=== PATIENT | female | born 1985 ===

== ENCOUNTER 2023-07-09 17:32 | Outpatient (REF) | payer OTHER, SELFPAY ==
--- OUTSIDE RECORDS SUMMARY | 2023-07-09 17:35 | XMS_ITS | Continuity of Care Document ---
Author Name Unknown Organization [facility] Address [address] [place] [address] Care Team Providers Care Storage Management Consultant Name Role Phone Jj Green Primary Care Physician Encounter [facility] Date(s): 06/05/22 - 06/05/[address] [address] Discharge Disposition: Home or Self Care Attending Physician: Ana Parks Admitting Physician: Ana Parks Referring Physician: Ana Parks Results Laboratory List Name Date Beta hCG Quantitative 06/05/22 Most recent to oldest [Reference Range]: 1 Beta hCG Qnt [1-6 mIntlUnit/mL] 1 mIntlU nit/mL (06/05/22 10:58 AM) Social History Social History Type Response Sex Female Patient Care team information Personnel Name: Jj Green MD Address: Address: [facility] [address], [place] [address]
--- OUTSIDE RECORDS SUMMARY | 2023-07-09 17:35 | XMS_ITS | Continuity of Care Document ---
Author Name Unknown Organization [facility] Address [address] [place] [address] Care Team Providers Care Curriculum Writer Name Role Phone Zehra Bryson Primary Care Physician Encounter [facility] Date(s): 11/17/22 - 11/17/[address] [address] Discharge Disposition: Home or Self Care Attending Physician: Ana Parks MD Admitting Physician: Ana Parks MD Referring Physician: Ana Parks MD Results Laboratory List Name Date Beta hCG Quantitative 11/17/22 Most recent to oldest [Reference Range]: 1 Beta hCG Qnt [1-6 mIntlUnit/mL] <1 mIntl Unit/mL *LOW* (11/17/22 9:59 AM) Social History Social History Type Response Sex Female Patient Care team information Care Team Personnel Name: Zehra Bryson MANAGER SOLAR Position: PowerChart View Only Member Role: Primary Care Physician Address: Address: [address] [place] [id number] Care Team Related Persons Name: FRAN HADLEY Address: Home [address] [facility] [place], [place] [id number]
--- OUTSIDE RECORDS SUMMARY | 2023-07-09 17:35 | XMS_ITS | Continuity of Care Document ---
Author Name Unknown Organization [facility] Address [address] [place] [address] Care Team Providers Care Customer Service Specialist Name Role Phone Zehra Bryson Primary Care Physician Encounter [facility] Date(s): 06/28/22 - 09/05/[address] [phone] [place] Encounter Diagnosis Muscle weakness (generalized)(Final) - Dudley-Danlos syndrome, unspecified(Final) - Fibromyalgia(Final) - Pain in left hip(Final) - Discharge Disposition: Home or Self Care Attending Physician: Zehra Bryson VASCULAR MANAGER Admitting Physician: Zehra Bryson VASCULAR MANAGER Referring Physician: Zehra Bryson VASCULAR MANAGER Assessment and Plan Future Appointments Social History Social History Type Response Sex Female Physical therapy Progress note * Kelsie Monet PT: PERFORM, MODIFY Event Display: Physical Therapy Progress Note Authored Date: [id number] *Visit Type:??SEEN ONLY *Referring??Diagnosis: Muscle weakness (M62.81), L hip pain (M25.552), 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 I think that Physical Therapy is valuable as a practice, but I don't think that it is for me at this point. Maybe if I have a more specific injury in the future that I need to rehab or if I have a surgical procedure on my hip it would be beneficial. I was in more pain every time I did PT in the past. The more that I do and move, the more that I hurt. Sometimes with the exercises they feel ok in the moment but then I have more pain after and realize that it was not ok. Regarding previous documentation at initial evaluation, patient expressed concern over the following PT statement: Patient appeared to display fear avoidant behaviors and PT questioned consistency of tremor intensity at times. She had significant variations within the session for similar movements. Patient was also often not making eye contact with PT during subjective interview. PT and patient discussed the impact of her diagnosis of autism on direct eye contact and its impacton her level of comfort with direct eye contact. PT and patient discussed the impact of an intention tremor which may vary at times during differenttasks. *Current Level of Function:??Not formally assessed today Pain: Not formally assessed today *Patient Education: Discontinuation of PT services at this time. *Physical Therapy Assessment: Patient arrived at PT appointment today and lengthy discussion was held regarding patient's benefits and responses to PT services/intervention. Patient is continuing to experience pain following increases in exercise or activity, and she conveyed to PT that physical therapy may be more beneficial during times of acute orthopedic issues and/or post surgical rehabilitation. At this time, we will discontinue formal physical therapy and patient will continue with occupational evaluation to address hand weakness concerns that she presently has. *Short Term Goals: All goals remain unmet at this time and will be discontinued per patient request-09/05/2022 1. Patient to report L hip pain at worst of less than or equal to 5/10 and occurring less than or equal to 2 times per week. 2. Patient to improve LEFS score to less than or equal to 50% impairment to facilitate improvementsin ability to perform functional activities such as housework, stairs navigation, walking, squatting, etc. with less difficulty. *Vending Machine Servicer Goals: All goals remain unmet at this time and will be discontinued per patient request -09/05/2022 1. Patient to restore 4/5 or greater MMT strength for all major LE muscle groups bilaterally to facilitate improvements in ability to squat, navigate stairs and perform transfers from all surfaces without UE assistance. 2. Patient to restore ability to perform all necessary housework duties without being limited by pain or difficulty. 3. Patient to demonstrate compliance and accuracy with final HEP to continue making functional progress upon discharge from PT. *Patient Goals: Reduce pain and improve functional abilities - unmet at this time and will be discontinued per patient request -09/05/2022 *Discharge Plan:??Discharged today from skilled PT intervention per patient request. *Procedure Documentation: Seen Only: Rehab Non-billable Visit:??18??minutes Rehab patient seen only and no charge for visit. *Total Time: 18 minutes *Time In: 9:30 AM *Time Out: 9:48 AM This document was dictated utilizing voice recognition software and may contain inadvertent errors. Electronically Signed on 09/05/22 10:10 AM Kelsie Monet PT * Lexie Morel: PERFORM, MODIFY, MODIFY, MODIFY, MODIFY, MODIFY, MODIFY, MODIFY, MODIFY, MODIFY, MODIFY, MODIFY, MODIFY, MODIFY, MODIFY, MODIFY, MODIFY, MODIFY, MODIFY, MODIFY, MODIFY, MODIFY, MODIFY, MODIFY, MODIFY, MODIFY, MODIFY, MODIFY, MODIFY, MODIFY, MODIFY, MODIFY, MODIFY, MODIFY, MODIFY, MODIFY, MODIFY, MODIFY, MODIFY, MODIFY, MODIFY, MODIFY, MODIFY, MODIFY, MODIFY, MODIFY, MODIFY, MODIFY, MODIFY, MODIFY, MODIFY, MODIFY, MODIFY, MODIFY, MODIFY, MODIFY, MODIFY, MODIFY, MODIFY, MODIFY, MODIFY, MODIFY, MODIFY, MODIFY, MODIFY, MODIFY, MODIFY, MODIFY, MODIFY, MODIFY, MODIFY, MODIFY, MODIFY, MODIFY, MODIFY, MODIFY, MODIFY, MODIFY, MODIFY, MODIFY, MODIFY, MODIFY, MODIFY, MODIFY, MODIFY, MODIFY, MODIFY, MODIFY, MODIFY, MODIFY, MODIFY, MODIFY, MODIFY, MODIFY, MODIFY, MODIFY, MODIFY, MODIFY, MODIFY, MODIFY, MODIFY, MODIFY, MODIFY, MODIFY, MODIFY, MODIFY, MODIFY, MODIFY, MODIFY, MODIFY, MODIFY, MODIFY, MODIFY, MODIFY, MODIFY, MODIFY, MODIFY, MODIFY, MODIFY, MODIFY, MODIFY, MODIFY, MODIFY, MODIFY, MODIFY, MODIFY, MODIFY, MODIFY, MODIFY, MODIFY, MODIFY, MODIFY, MODIFY, MODIFY, MODIFY, MODIFY, MODIFY, MODIFY, MODIFY, MODIFY, MODIFY, MODIFY, MODIFY, MODIFY, MODIFY, MODIFY, MODIFY, MODIFY, MODIFY, MODIFY, MODIFY, MODIFY, MODIFY, MODIFY, MODIFY, MODIFY, MODIFY, MODIFY, MODIFY, MODIFY, MODIFY, MODIFY, MODIFY, MODIFY, MODIFY, MODIFY, MODIFY, MODIFY, MODIFY, MODIFY, MODIFY, MODIFY, MODIFY, MODIFY, MODIFY, MODIFY, MODIFY, MODIFY, MODIFY, MODIFY, MODIFY, MODIFY, MODIFY, MODIFY, MODIFY, MODIFY, MODIFY, MODIFY, MODIFY, MODIFY, MODIFY, MODIFY, MODIFY, MODIFY, MODIFY, MODIFY, MODIFY, MODIFY, MODIFY, MODIFY, MODIFY, MODIFY, MODIFY, MODIFY, MODIFY, MODIFY, MODIFY, MODIFY, MODIFY, MODIFY, MODIFY, MODIFY, MODIFY, MODIFY, MODIFY, MODIFY, MODIFY, MODIFY, MODIFY, MODIFY, MODIFY, MODIFY, MODIFY, MODIFY, MODIFY, MODIFY, MODIFY, MODIFY, MODIFY Event Display: Physical Therapy Progress Note Authored Date: *Visit Type:??Initial Evaluation *Referring??Diagnosis: Muscle weakness (M62.81), L hip pain (M25.552), 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 She states there was an initial injury while she was moving her leg sideways while in bed and heard a pop in herL hip. After this incident she experienced severe pain. At the time, she reports she thought she may have pulled a muscle, and decided to ignore it without seeking medical attention. She states she eventually went to see a doctor who thought she may have a tear but would need to trial PT prior to having an X-ray/MRI's. She states she began PT, but it only made pain worse. She states she did not complete all of her PT sessions and ended up moving from [facility] to [place] at that time. She states she feels symptoms may have improved slightly, but she is unsure if she may just be coping with them better at this point. Patient states she has progressing muscle weakness and tremors of unknown cause throughout her body that occur when tensioning a given muscle. She states she has had nerve conduction studies on the UE's, but there was no identified cause. She feels the weakness and tremors are slowly getting worse and she is finding more and more activities are difficult to perform.She states she also feels her tremors are worse when her anxiety is heightened. Patient reports shefeels her track repair supervisor strength in particular is getting weaker and weaker, to the point where she is now st ruggling to use zippers, to perform household tasks and with caring for her 2 year old daughter. Patient states she did not her child. Patient also complains of head and neck pain, stating thatshe has not formally addressed these concerns yet other than received trigger point injections and previous child care coordinator. She states she will be following up with her doctor regarding these concerns in about a month. Patient Case History:??Referred to PT and OT from PCP on 05/29/22 for muscle weakness and L hip pain. Pertinent Past Medical History: - Dudley Danlos Syndrome - Fibromyalgia - L Hip Pain - Depression - Muscle weakness - Vision disorder - Tremor - Psoriasis - Raynaud's disease - Migraine - Chronic fatigue syndrome - Anxiety syndrome - Autistic disorder Pertinent Past Surgical History: - Removal for uterine polyps 2020 - Breast reduction few years prior Pertinent Medications: - diclofenac sodium - ondansetron - rizatriptan - gabapentin - buspirone - bupropion - topiramate Pertinent Allergies: - Pertuss Vaccines - Sensitivity to Lidocaine Clinically Complex Situations:??None Prior Therapy:??Patient states she has had physical therapy for this problem in the past but it made things worse. She states she was living in [facility] at the time, about 2 years ago. She states that PT was very general, and the therapist emphasized not doing anything that hurts. She states she was given light resistance bands and general exercises to complete during her PT sessions as well as at home. She reports pain got worse every time and she was experiencing pain constantly between sessions, so she was unable to complete home exercises. She reports the PT attempted to back off with exercises, but no matter what things kept getting worse. She states she ended up quitting before completing all of the recommended sessions. Prior Diagnostic Results: No formal X-rays or MRI's to this date. Patient reports she had previous nerve conduction studies completed in the arms/hands. Prior Treatment:??Formal PT for hip pain as described below. Otherwise, no other treatment for thisproblem. *Barriers to Education/Special Communication Needs:??None Behavior:??Patient appeared to display fear avoidant behaviors and PT questioned consistency of tremor intensity at times. She had significant variations within the session for similar movements. Patient was also often not making eye contact with PT during subjective interview. Occupational Profile:??Patient does not work at this time secondary to pain and other health conditions. Home Environment/Set Up:??One set of stairs at home to the second floor. She is currently having togo up and down them to get to her 2 year old's bedroom. Household Members/Support Network: Lives with her and 2 year old daughter. Home Equipment:??No exercise equipment at home. *Previous Level of Function: Functional activities were somewhat difficult due to other issues, butthe hip pain and weakness has specifically exacerbated existing problems and created others. *Current Level of Function: - Stairs: managing but not comfortable - Sitting: current tolerance ~20 minutes - Standing: current tolerance ~20 minutes - Sleeping: might wake up if move the hip wrong (e.g., into abduction), wakes several times per night for various reasons - Has a lot of pets/animals to care for at home. She reports she is managing but it is a struggle - Struggles with completing housework - Stairs: she is managing to do them as they are required to get to her daughter's bedroom but withdifficulty and pain Per the LEFS: - Extreme difficulty with/inability to perform: hobbies/recreational activities, walking a mile, running, hopping - Quite a bit of difficulty with: usual work/housework, squatting, heavy activities around the home, standing or sitting for one hour and rolling over in bed - Moderate difficulty with: getting in and out of the bath, walking between rooms, putting on socksand shoes, lifting objects from the floor, light activities around the home, getting in and out of the car, walking 2 blocks and ascending and descending a flight of 10+ stairs Pain: Posterior/Lateral L hip aches and is tense at all times & Deeper sharp pain/ache into the L hipjoint with sudden hip abduction movements Current/best: 10 Worst: 03/28 when overworked, which happened twice in the past week Aggravators: walking, standing for periods of time, attempting butterfly sitting, sudden hip abduction movements Alleviators: reports using heat and medications such as Tylenol and Ibuprofen (alongside already prescribed pain medications) but these do not take the pain away Palpation: Tenderness to palpation and increased tension noted along L gluteals/piriformis region. Skin Inspection: Patient denies bruising, although she sometimes has redness surrounding the hip when it is particularly irritated. Hip Joint ROM/Strength: R AROM L AROM R PROM L PROM R Strength L Strength Hip Flex ??105 ??98 ??110 ??99 Assess at next visit Assess at next visit Hip Ext ??22 ??25 ??4-/5 ??3+/5 Hip Abd ??34 ??15 (pain begins) ??3+/5 ??3+/5 Hip Add ??3+/5 ??3+/5 Hip ER ??24 ??30 ??4-/5 ??4-/5 Hip IR ??45 ??35 ??3+/5 ??4-/5 Hip Special Tests:??Not assessed. Balance: ?Single Limb Stance: 10 seconds on the R, 11 seconds on the L with 2x hand checks ?Tandem Stance: L in front 10 seconds, 13 seconds with R in front Lower Quadrant Screen: L knee MMT: extension and flexion 4-/5 R knee MMT: flexion 4-/5, extension 4/5 Patient was unable to fully rise on her toes bilaterally. Patient was able to perform a deep squat, however required UE assistance to ascend. Patient was able to ascend and descend ~5 stairs in a reciprocal pattern with no reports of increased symptoms. She did note a popping in the knee following descent. Spinal Screen: Patient noted symptoms are mostly localized to the L hip and may radiate into the leg at times, but otherwise no report of symptoms warranted further spinal screening. Palpation along lumbar spinous processes was negative for tenderness. Posture Deviations/Comments: Seated: Forward flexed trunk Standing: Patient stands in exaggerated DF with COG shifted anteriorly, knees are in full extensionand trunk is in neutral, R shoulder depression (patient is R hand dominant) Gait Deviations/Comments: Slight bilateral Trendelenburg noted, otherwise WNL. *Patient Education: Education regarding PT findings and POC. Also issued initial home exercise program and educational handout, emphasizing not pushing past pain/fatigue. Patient was also referred toOT for the same problem and PT discussed that OT may be able to better assist with improving track repair supervisor strength, dressing, household tasks, etc. *Physical Therapy Assessment: Patient is a 37 year old female presenting to outpatient PT with referral from her PCP to address muscle weakness and L hip pain. PT findings were consistent with these diagnoses. Pertinent findings included pain presentation, tenderness to palpation, decreased bilateral LE MMT strength, impaired balance, postural abnormalities and impaired LE function per the LEFS. Impairments are associated with difficulty and pain with functional activities such as walking, standing, sitting, stair navigation, transfers, etc. PT feels the patient may benefit from skilled services targeted at reducing pain symptoms and improving LE function. Patient has previously attended physical therapy to address this problem, which was not successful. Patient reported it made pain and limitations worse at that time and she did not complete the full course of care. Patient also has past medical history significant for hypermobile Dudley Danlos Syndrome, depression, anxiety, fibromyalgia, tremors, chronic fatigue syndrome, etc. which may limit success with PT. Dudley Danlos Syndrome especially may limit success with PT, as current evidence recommends progressing with exercises atsub-pain threshold/low intensity. Given the above factors, PT feels the patient has a fair prognosis for reaching the established goals. PT course of care will emphasize independent home exercise program with biweekly follow-ups to assess goal status and progress as able. Patient agrees and consents to POC. *Rehab Potential:?Fair?to reach the established goals *Functional Outcome Measure:??Lower Extremity Functional Scale (LEFS) ? Score: 72.5% impairment rating ? Comments: Items related to running and hopping will not be addressed in this episode of care. *Short Term Goals: ??to be met in 5 weeks 1. Patient to report L hip pain at worst of less than or equal to 5/10 and occurring less than or equal to 2 times per week. 2. Patient to improve LEFS score to less than or equal to 50% impairment to facilitate improvementsin ability to perform functional activities such as housework, stairs navigation, walking, squatting, etc. with less difficulty. *Vending Machine Servicer Goals: to be met in 9 weeks 1. Patient to restore 4/5 or greater MMT strength for all major LE muscle groups bilaterally to facilitate improvements in ability to squat, navigate stairs and perform transfers from all surfaces without UE assistance. 2. Patient to restore ability to perform all necessary housework duties without being limited by pain or difficulty. 3. Patient to demonstrate compliance and accuracy with final HEP to continue making functional progress upon discharge from PT. *Patient Goals: Reduce pain and improve functional abilities. *Frequency of Treatment: 1x follow up next week and then 1x biweekly *Intensity of Treatment (minutes):??45 minutes *Duration of Treatment (days/weeks):??9 weeks total *Planned Treatment Interventions: ??x CPT 04025: Therapeutic Exercise CPT 74898: Iontophoresis ??x CPT 92865: Therapeutic Activity CPT 63985: Electrical Stimulation (TENS/probe) CPT 67629: Manual Therapy CPT G0283: Electrical Stimulation (unattended) CPT 58148: Gait Training CPT 16721: Biofeedback ??x CPT 19046: Neuromuscular Re-education CPT 38776: Initial Orthotic Fit/Train ??x CPT 57583: Self-Care/Home Management CPT 97627: Initial Prosthetic Train CPT 34822: Ultrasound *Discharge Plan:?Upon achieving goals or maximal benefit of therapy services. *Procedure Documentation: CPT 21494: Low Complexity PT Evaluation:?57?? minutes Physical Therapy Evaluation performed. History involves 1-2 personal factors and/or comorbidities. Examination of body system(s) includes 3 or more elements. Clinical presentation is stable. Clinical decision making is low. CPT 71235: Therapeutic Exercise:??10?? minutes Therapeutic exercise to promote improved joint stability, strength, endurance, and range of motion for functional ADL???s such as: housework, stairs navigation, transfers, walking, standing, sitting,squatting, etc. Specific education/training provided: - Initial HEP instructions for walking program, standing hip flexion marching, abduction and extension exercises. - Education as per above. *Total Time: 67 minutes *Time In: 1:45 PM *Time Out: 2:52 PM Electronically Signed on 07/24/22 11:39 AM Lexie Morel Reviewed by: Samantha Wharton * Kelsie Monet PT: PERFORM Event Display: Physical Therapy Progress Note Authored Date: This encounter was completed by HERMES Bradshaw, under the direct supervision of Kelsie Monet PT. Electronically Signed on 07/24/22 11:42 AM Kelsie Monet PT, CWS Patient Care team information Personnel Name: Zehra Bryson NP Address: Address: [address] [place] [id number]
[2023-07-09 18:34] LABS: Anion Gap 7.1 mmol/L (3-11); BUN 13 mg/dL (7-18); CO2 26.9 mmol/L (21.0-32.0); CREATININE 0.6 mg/dL (0.55-1.02); Calcium 9.2 mg/dL (8.5-10.1); Chloride 104 mmol/L (98-107); Estimated GFR 118.49 (mL/min/1.73m2); Glucose 85 mg/dL (74-106); Potassium 3.9 mmol/L (3.5-5.1); Sodium 138 mmol/L (136-145)
== END 2023-07-09 17:33 | disposition home or self-care (01) ==
LOC: NCHCN 17:32
PROVIDERS: PCP Nurse Practitioner Family; Visit Provider Nurse Practitioner Family
DX: F32.9 Major depressive disorder, single episode, unspecified (principal)
CPT/HCPCS: 80048

== ENCOUNTER 2025-02-24 22:22 | Outpatient (REF) | payer BC, SELFPAY ==
[2025-02-24 22:04] LABS: ALT 31 U/L (14-59); AST 15 U/L (15-37); Albumin 4.1 g/dL (3.4-5.0); Alkaline Phosphatase 64 U/L (46-116); Anion Gap 6.1 mmol/L (3-11); BUN 8 mg/dL (7-18); Bilirubin, Total 0.3 mg/dL (0.2-1.0); CO2 28.9 mmol/L (21.0-32.0); Calcium 9.1 mg/dL (8.5-10.1); Chloride 103 mmol/L (98-107); Estimated GFR 117.75 (mL/min/1.73m2); Glucose 87 mg/dL (74-106); Potassium 4.0 mmol/L (3.5-5.1); Sodium 138 mmol/L (136-145); TSH 2.58 uIU/mL (0.36-3.74); Total Protein 7.5 g/dL (6.4-8.2)
== END 2025-02-24 22:23 | disposition home or self-care (01) ==
LOC: NCHCN 22:22
PROVIDERS: PCP Nurse Practitioner Family; Visit Provider Nurse Practitioner Family
DX: R63.5 Abnormal weight gain (principal)
CPT/HCPCS: 80053; 84443